=== PATIENT | female | born 1980 | race Caucasian/White ===

== ENCOUNTER → 2022-08-31 | Outpatient (CLI) | payer OTHER, SELFPAY | END | disposition home or self-care (01) | LOC: LABSPEC 09:51 | PROVIDERS: Visit Provider Physician Assistant | DX: J02.9 Acute pharyngitis, unspecified (principal) | CPT/HCPCS: 87077; 87081 ==

== ENCOUNTER → 2023-02-02 | Outpatient (CLI) | payer OTHER, SELFPAY ==
--- NOTE | 2023-02-02 10:23 | BI_ITS ---
MAMMOGRAPHY - BILATERAL SCREENING REASON FOR EXAM: Female, 42 years old. Routine annual screening examination. PERTINENT HISTORY: Grandmother with breast cancer. TECHNIQUE: Digital bilateral breast tao (3D mammographic acquisition) in the CC and MLO projections. 2-D mediolateral oblique (MLO) and craniocaudad (CC) views of both breasts were obtained. CAD: Full Field Digital Mammography with Computer Added Detection was performed. COMPARISON: None. Baseline examination. FINDINGS: Breast Composition: The breasts are heterogeneously dense, which may obscure small masses. There are no dominant masses or suspicious calcifications. Small benign-appearing bilateral axillary lymph nodes. No other significant abnormalities are identified. BI/SCRN MAMM (CAD)W/TAO BILAT IMPRESSION: Negative screening mammogram. Yearly followup mammogram recommended. (A) ASSESSMENT CATEGORY: BIRADS Category 2: Benign. A letter regarding these results will be sent to the patient by the facility within 30 days. Approximately 10% of breast cancers are not detected by mammography. A normal mammogram should not delay biopsy of a clinically suspicious abnormality. [id number] Electronically Signed: Dedrick Young MD at 12:22 EDT ,
== END | disposition home or self-care (01) ==
LOC: OPBI 10:21
PROVIDERS: PCP Nurse Practitioner Adult Health; Referring Provider Obstetrics & Gynecology Gynecology; Visit Provider Obstetrics & Gynecology Gynecology
DX: Z12.31 Encounter for screening mammogram for malignant neoplasm of breast (principal); Z80.3 Family history of malignant neoplasm of breast
CPT/HCPCS: 77063; 77067

== ENCOUNTER → 2024-04-17 | Outpatient (CLI) | payer OTHER, SELFPAY ==
--- NOTE | 2024-04-17 13:44 | BI_ITS ---
MAMMOGRAPHY - BILATERAL SCREENING REASON FOR EXAM: Female, 43 years old. Routine annual screening examination. PERTINENT HISTORY: Grandmother with breast cancer. TECHNIQUE: Digital bilateral breast tao (3D mammographic acquisition) in the CC and MLO projections. 2-D mediolateral oblique (MLO) and craniocaudad (CC) views of both breasts were obtained. CAD: Full Field Digital Mammography with Computer Added Detection was performed. COMPARISON: Comparison is made with prior study February 02, 2023. FINDINGS: Breast Composition: The breasts are heterogeneously dense, which may obscure small masses. There are no dominant masses or suspicious calcifications. No other significant abnormalities are identified. There has been no significant change since the prior study. BI/SCRN MAMM (CAD)W/TAO BILAT IMPRESSION: Stable bilateral screening mammogram. Yearly follow-up mammogram recommended. (A) ASSESSMENT CATEGORY: BIRADS Category 1: Negative. A letter regarding these results will be sent to the patient by the facility within 30 days. Approximately 10% of breast cancers are not detected by mammography. A normal mammogram should not delay biopsy of a clinically suspicious abnormality. [id number] Electronically Signed: Dedrick Young MD at 14:38 EDT ,
--- NOTE | 2024-04-17 14:30 | CT_ITS ---
STUDY: CT CHEST WITHOUT CONTRAST REASON FOR EXAM: Female, 43 years old. FAMILY HX HYPERLIPIDEMIA RADIATION DOSAGE (If Supplied By Facility): CTDIvol = ( 12.19 ) mGy, DLP = ( 219.42 ) mGycm TECHNIQUE: Transaxial imaging was performed without the administration of intravenous contrast material. Cardiac over read examination. Individualized dose optimization techniques were used for this CT. COMPARISON: No relevant priors. FINDINGS: CHEST There is a 3.6 mm noncalcified nodule in the posterior lateral aspect of the right middle lobe as seen on axial image #40. A similar-appearing nodule measuring 3.5 mm is seen along the posterior lateral aspect of the lingula some of the left upper lobe abutting the left major fissure as seen on axial image #27. There is no demonstrated pleural abnormality. Normal heart and pericardium. No coronary artery calcification is seen. Normal mediastinum. Normal hilar regions. Normal unenhanced pulmonary arteries. Normal aorta arch and descending thoracic aorta. Normal osseous structures. There is no demonstrated abnormality of the visualized upper abdomen. CT/Limited Chest CT Cardiac Only IMPRESSION: No evidence of coronary artery calcification. Noncalcified nodules seen as described. A CT scan of the chest is recommended for further evaluation. Electronically Signed: Dedrick Young MD at 15:31 EDT ,
--- OUTSIDE RECORDS SUMMARY | 2024-04-17 16:17 | XMS RPT_ITS | CCD ---
Author Organization [facility] Care Team Providers Care Refractory Repairer Name Role Phone CARA KO DO Primary Care Physician ([phone] CYNTHIA JUNG MD Attending Unavailable CARA KO DO Primary Care Unavailable CYNTHIA JUNG MD Attending Unavailable CARA KO DO Primary Care Unavailable CARA KO DO Primary Care Unavailable CYNTHIA JUGN MD Attending Unavailable Medications Current Medications Medication Drug Class(es) Dates Sig (Normalized) Sig (Original) estrogens, conjugated (assisted) 0.625 mg / medroxyPROGESTERone acetate 2.5 mg oral tablet (1 source) Progestin, Estrogen Start: 03-21-2024 take 1 tablet by mouth once daily Prempro 0.625 mg-2.5 mg oral tablet Dose = 1 tab(s), Oral, qDay, # 30 tab(s), 0 Refill(s), Pharmacy: [facility]/pharmacy #[id number], Well woman exam Menopausal symptoms, 165, cm, 03/21/24 11:03:00 EDT, Height, kg, 03/21/24 11:03:00 EDT, Dosing Weight Start Date: 03/21/24 Status: Ordered Multivitamin preparation (2 sources) Start: 05-01-2016 take 1 tablet by mouth once daily Multivitamin Dose = 1 tab(s), Oral, Daily, 0 Refill(s) Start Date: 05/01/16 Status: Ordered Problems Problem Classification Problem Date Documented Da te Episodic/Chronic Abdominal hernia (2 sources) Umbilical hernia 05-01-2016 Episodic Disorders of lipid metabolism (1 source) Hyperlipidemia 02-27-2023 Chronic Heart valve disorders (2 sources) Mitral valve prolapse 11-30-2013 Chronic Other screening for suspected conditions (not mental disorders or infectious disease) (2 sources) Encounter for other screening for malignant neoplasm of breast; Translations: [Screening for malignant neoplasm done] Episodic Other upper respiratory infections (1 source) Sore throat symptom 08-20-2023 Episodic Spondylosis; intervertebral disc disorders; other back problems (2 sources) Prolapsed lumbar intervertebral disc 05-01-2016 Chronic Comment on above: L4-L5 Unclassified (1 source) Patient encounter status 02-27-2023 Viral infection (1 source) Disease caused by 2019-nCoV 08-20-2023 Results Test Name Value Interpretation Reference Range Facility E2on 03-27-2024 Estradiol Level <11.80 Normal [facility] Comment on above: Result Comment: No te - New Reference Range in effect 20 Adult Female E2 Reference Ranges: Follicular phase 19.5 - 144.2 pg/mL Midcycle 63.9 - 356.7 pg/mL Luteal phase 55.8 - 214.2 pg/mL Post menopausal 0 - 33.2 pg/mL Performed By: #### E 2 #### [facility] [address] [place] [id number] #### LIPID #### [facility] [address] [place], [place] [address] LABORATORYOrdered By: Iona Cadena on 03-27-2024 Cholesterol [Mass/Vol] 237 mg/dL High 0 - 200 mg/dL AO ADM SS Comment on above: Interpretive Data: C holesterol Reference Interval: Less than 200 Desirable 200-239 Borderline high risk 240 and above High risk Cholesterol in HDL [Mass/Vol] 51 mg/dL Normal 40 - 60 mg/dL AO ADM SS Cholesterol in LDL [Mass/Vol] 168 mg/dL High 0 - 130 mg/dL AO ADM SS Triglyceride [Mass/Vol] 90 mg/dL Normal 0 - 150 mg/dL AO ADM SS Comment on above: Interpretive Data: T riglyceride Reference Interval: Less than 150 Normal 150-199 Borderline high risk 200-499 High risk 500 or higher Very high risk LABORATORYOrdered By: SYSTEM SYSTEM on 03-27-2024 E2 [Mass/Vol] pg/mL Invalid Interpretation Code AH ADM SS Comment on above: Interpretive Data: * *Note - New Reference Range in effect 20 Adult Female E2 Reference Ranges: Follicular phase 19.5 - 144.2 pg/mL Midcycle 63.9 - 356.7 pg/mL Luteal phase 55.8 - 214.2 pg/mL Post menopausal 0 - 33.2 pg/mL LIPIDon 03-27-2024 Cholesterol [Mass/Vol] 237 mg/dL High 0-200 [facility] Comment on above: Result Comment: Chol esterol Reference Interval: Less than 200 Desirable 200-239 Borderline high risk 240 and above High risk Performed By: #### E 2 #### [place] [address] #### LIPID #### [address] [address] Cholesterol in HDL [Mass/Vol] 51 mg/dL Normal 40-60 [facility] Comment on above: Performed By: #### E 2 #### [address] [address] #### LIPID #### [address] [address] Cholesterol in LDL [Mass/Vol] 168 mg/dL High 0-130 [facility] Comment on above: Performed By: #### E 2 #### [address] [address] #### LIPID #### [address] [address] Triglyceride [Mass/Vol] 90 mg/dL Normal 0-150 [facility] Comment on above: Result Comment: Trig lyceride Reference Interval: Less than 150 Normal 150-199 Borderline high risk 200-499 High risk 500 or higher Very high risk Performed By: #### E 2 #### [address] [address] #### LIPID #### [address] [address] GLUon 01-30-2023 Glucose [Mass/Vol] 97 mg/dL Normal 70-105 [facility] ([place]) Comment on above: Performed By: #### T SH, LIPID, GLU #### [address] [address] LABORATORYOrdered By: Anabel Lim on 01-30-2023 Cholesterol [Mass/Vol] 225 mg/dL Invalid Interpretation Code 0 - 200 mg/dL AO ADM SS Comment on above: Interpretive Data: C holesterol Reference Interval: Less than 200 Desirable 200-239 Borderline high risk 240 and above High risk Cholesterol in HDL [Mass/Vol] 47 mg/dL Invalid Interpretation Code 40 - 60 mg/dL AO ADM SS Cholesterol in LDL [Mass/Vol] 159 mg/dL Invalid Interpretation Code 0 - 130 mg/dL AO ADM SS Triglyceride [Mass/Vol] 96 mg/dL Invalid Interpretation Code 0 - 150 mg/dL AO ADM SS Comment on above: Interpretive Data: T riglyceride Reference Interval: Less than 150 Normal 150-199 Borderline high risk 200-499 High risk 500 or higher Very high risk LABORATORYOrdered By: SYSTEM SYSTEM on 01-30-2023 Glucose [Mass/Vol] 97 mg/dL Invalid Interpretation Code 70 - 105 mg/dL AO ADM SS TSH Qn 1.85 m[IU]/L Invalid Interpretation Code 0.36 - 3.74 mcIU/mL AO ADM SS LIPIDon 01-30-2023 Cholesterol [Mass/Vol] 225 mg/dL High 0-200 [facility] ([place]) Comment on above: Result Comment: Chol esterol Reference Interval: Less than 200 Desirable 200-239 Borderline high risk 240 and above High risk Performed By: #### T SH, LIPID, GLU #### [address] [address] Cholesterol in HDL [Mass/Vol] 47 mg/dL Normal 40-60 [facility] ([place]) Comment on above: Performed By: #### T SH, LIPID, GLU #### [address] [address] Cholesterol in LDL [Mass/Vol] 159 mg/dL High 0-130 [facility] ([place]) Comment on above: Performed By: #### T SH, LIPID, GLU #### [address] [address] Triglyceride [Mass/Vol] 96 mg/dL Normal 0-150 [facility] ([place]) Comment on above: Result Comment: Trig lyceride Reference Interval: Less than 150 Normal 150-199 Borderline high risk 200-499 High risk 500 or higher Very high risk Performed By: #### T SH, LIPID, GLU #### [facility] [address] [place], [place] [address] TSHon 01-30-2023 TSH Qn 1.85 m[IU]/L Normal 0.36-3.74 [facility] ([place]) Comment on above: Performed By: #### T SH, LIPID, GLU #### [facility] [address] [place], [place] [address] Encounters Encounter Date Encounter Type Care Provider Facility Start: 03-27-2024 End: 03-27-2024 ambulatory [facility] Facility:[facility] Start: 03-27-2024 End: 03-27-2024 Patient encounter procedure CYNTHIA JUNG MD [facility] Start: 01-30-2023 End: 01-31-2023 ambulatory CYNTHIA JUNG MD Facility: Start: 01-30-2023 End: 01-30-2023 Gynecological examination normal CYNTHIA JUNG MD [facility] Start: 01-30-2023 End: 01-30-2023 Patient encounter procedure CYNTHIA JUNG MD [facility] Start: 01-29-2023 ambulatory CYNTHIA JUNG MD Facilit y:B Procedures Date Procedure Procedure Detail Performing Clinician Start: 05-25-2016 Primary repair of umbilical hernia CYNTHIA JUNG MD Mammography CYNTHIA JUNG MD Comment on above: [facility] 01/2023 Structure of wisdom tooth (body structure) CYNTHIA JUNG MD Immunizations Immunization Date Immunization Notes Care Provider Fa cristin 09-10-2020 COVID-19, mRNA, LNP- S, PF, 100 mcg or 50 mcg dose; Translations: [Moderna COVID-19 Vaccine] CYNTHIA JUNG MD [facility] 08-13-2020 COVID-19, mRNA, LNP- S, PF, 100 mcg or 50 mcg dose; Translations: [Moderna COVID-19 Vaccine] CYNTHIA JUNG MD [facility] Payers Date Payer Category Payer Unknown [id number] 1980 Unknown [id number] 1980 Unknown [id number] [id number] 1980 Unknown [id number] Social History Date Type Detail Facility Start: 01-29-2023 End: 08-20-2023 Tobacco smoking status Never smoked tobacco (finding) [facility] Sex Assigned At Female [facility] Evaluation + Plan note 05-29-2023 LaboratoryRadiology Note Date & Type Note Facility 05-29-2023 Evaluation + Plan note Future Scheduled TestsLipid Profile 05/29/23CT Coronary Calcium Score w/o Contrast 03/21/24 [facility] Evaluation + Plan note Radiology Note Date & Type Note Facility Evaluation + Plan note Future Appointments Appointment Date:02/27/2023 03:30:00 PM Scheduled Provider:SHIRA MOSS Location:[facility] Appointment Type: OV Future Scheduled TestsMA Mammo Screening Bilateral w/ Bruce 01/29/23 [facility] Hospital course Narrative Note Date & Type Note Facility Hospital course Narrative No data available for this section [facility] Hospital Discharge instructions Note Date & Type Note Facility Hospital Discharge instructions No data available for this section [facility] Progress note Note Date & Type Note Facility Progress note No data available for this section [facility] Summary Purpose Family History No Family History Records Found Advance Directives No Advanced Directives Records FoundNo Advanced Directives Records Found Additional Source Comments Patient Care team informatio n (unrecognized section and content) Care Team Personnel Name: CARA KO Position: P4 Physician - Primary Care Member Role: Primary Care Physician Address: Address: [address] [place] [address] Care Team Related Persons Name: NONE, NONE Care Team Personnel Name: CARA KO DO Position: P4 Physician - Primary Care Member Role: Primary Care Physician Address: Address: [address] [place] [address] Care Team Related Persons Name: NONE, NONE INFORMATION SOURCE (unrecogn ized section and content) DATE CREATED AUTHOR 01/31/2023 [facility] ([place]) DATE CREATED AUTHOR AUTHOR'S ORGANIZ ATION 03/28/2024 [facility] FOR RECORDS PERTAINING TO PATIENTS WHO ARE OR HAVE BEEN ENROLLED IN A CHEMICAL DEPENDENCY/SUBSTANCEABUSE PROGRAM, SOME INFORMATION MAY BE OMITTED. This clinical summary was aggregated from multiple sources. Caution should be exercised in using it in the provision of clinical care. This summary normalizes information from multiple sources, and as a consequence, information in this document may materially change the coding, format and clinical context of patient data. In addition, data may be omitted in some cases. CLINICAL DECISIONS SHOULD BE BASED ON THE PRIMARY CLINICAL RECORDS. [employer] [facility]. provides no warranty or guarantee of the accuracy or completeness of information in this document.
--- NOTE | 2024-04-17 17:02 | CA.SCORE ---
Calcium Scoring Date of Study:: 04/17/24 Indications Indications: family HX Coronary Calcium Scoring: High-resolution Computed Tomographic imaging of the chest was performed on [04/17/24 ], with particular attention paid to the coronary arteries. Images from the examination were analyzed for the presence and extent of coronary artery calcification , using coronary calcium quantification software. The patient tolerated the procedure well and there were no complications. The results of the coronary calcification analysis are provided below. Findings Coronary Artery Left Main (LM): 0 Left Anterior Descending (LAD): 0 Left Circumflex (LCX): 0 Right Coronary Artery (RCA): 0 Total Agatston Score: 0 Percentile Rankin% Calcium Scoring Interpretation: Different methods to categorize the overall amount of coronary plaque. Overall amount CAC SIS Visual of coronary plaque P1 Mild -100 <2 1-2 vessels with mild amount of plaque P2 Moderate 101-300 3-4 1-2 vessels with moderate amount, 3 vessels with mild amount of plaque P3 Severe 301-999 5-7 3 vessels with moderate amount, 1 vessel with severe amount of plaque P4 Extensive >1000 >8 2-3 vessels with severe amount of plaque Conclusion: No Atherosclerotic plaques noted.
== END | disposition home or self-care (01) ==
PROVIDERS: PCP Nurse Practitioner Adult Health; Referring Provider Obstetrics & Gynecology Gynecology; Visit Provider Obstetrics & Gynecology Gynecology
DX: Z12.31 Encounter for screening mammogram for malignant neoplasm of breast (principal); E78.5 Hyperlipidemia, unspecified; Z82.49 Family history of ischemic heart disease and other diseases of the circulatory system
CPT/HCPCS: 75571; 76380; 77063; 77067

== ENCOUNTER → 2024-05-19 | Outpatient (CLI) | payer OTHER, SELFPAY ==
--- NOTE | 2024-05-19 16:08 | CT_ITS ---
INDICATION: NODULE FOUND ON CT CALCIUM SCORING EXAMINATION: CT CHEST WITH CONTRAST - CT Chest W/ Contrast Injection TECHNIQUE: Helically acquired images were obtained of the chest following IV contrast. A radiation dose optimization technique was used for this scan. IV Contrast dosage and agent: COMPARISON: 04/17/2024 FINDINGS: LUNGS, PLEURA AND LARGE AIRWAYS: 4 mm noncalcified nodule in the inferior right middle lobe lungs on image 73 and follow-up CT the chest is recommended in 12 months document stability per ACR recommendations. Similar 4 mm nodule in the subpleural lingula on image 62. No other noncalcified nodule or mass. No pleural effusion or thickening. No pneumothorax. THYROID: No thyroid lesions. HEART AND PERICARDIUM: Heart size is normal. No pericardial effusion. VESSELS: Thoracic aorta is not dilated. No aortic dissection. No obvious central pulmonary embolism although this study was not performed with the pulmonary embolism protocol. MEDIASTINUM AND GRIFFIN: No mediastinal or hilar adenopathy. Esophagus is unremarkable. No hiatal hernia. UPPER ABDOMEN: No acute pathology. BONES: No suspicious lytic or blastic abnormality. CT/Chest WITH Contrast IMPRESSION: Right middle lobe and lingular nodules and follow-up CT is recommended in 12 months document stability. Electronically Signed: Chris Gagnon MD at 12:41 EST ,
== END | disposition home or self-care (01) ==
PROVIDERS: PCP Nurse Practitioner Adult Health; Referring Provider Preventive Medicine Occupational Medicine; Visit Provider Preventive Medicine Occupational Medicine
DX: R91.8 Other nonspecific abnormal finding of lung field (principal)
CPT/HCPCS: 71260; Q9967